=== PATIENT | male | born 2000 | race Asian ===

== ENCOUNTER → 2019-02-01 18:39 | Outpatient (CLI) | payer OTHER, SELFPAY ==
--- NOTE | 2019-02-01 18:46 | DI.RAD.S_ITS ---
PROCEDURE: XR ANKLE LT MIN 3V INDICATIONS: left ankle pain TECHNIQUE: 3 views of the ankle were acquired. COMPARISON: None. FINDINGS: Bones: No fractures or dislocations. Ankle mortise is normally aligned. No suspicious bony lesions. Soft tissues: No tibiotalar joint effusion. Achilles tendon appears normal. Ankle soft tissue swelling is seen particularly over lateral malleolus. IMPRESSION: No gross acute ankle fracture or dislocation. Ankle soft tissue swelling. Intact ankle mortise. Dictated by: Danny Salvador M.D. on 02/01/2019 at 19:14 Approved by: Danny Salvador M.D. on 02/01/2019 at 19:14
== END ==
PROVIDERS: Visit Provider Physician Assistant
DX: M25.572 Pain in left ankle and joints of left foot (principal); M25.472 Effusion, left ankle
CPT/HCPCS: 73610